=== PATIENT | male | born 1950 | race Caucasian/White ===

== ENCOUNTER → 2017-01-03 | Outpatient (CLI) | payer BC ==
[~2017-01-03] MED LIST: ASPIRIN E.C. 8181 MG PO; LIPITOR 10MG10 MG PO; LOPRESSOR 225 MG/TAB PO; NO HOME MEDICATIONS
== END ==
LOC: BHSO 15:05
DX: F41.1 Generalized anxiety disorder (principal)

== ENCOUNTER → 2017-04-04 | Outpatient (CLI) | payer BC, OTHER | LOC: BHSO 14:51 | DX: F41.1 Generalized anxiety disorder (principal) ==

== ENCOUNTER → 2017-10-03 | Outpatient (CLI) | payer BC, OTHER | LOC: BHSO 14:54 | DX: F41.1 Generalized anxiety disorder (principal) | CPT/HCPCS: G0463 ==

== ENCOUNTER → 2018-09-11 | Outpatient (CLI) | payer BC, OTHER | LOC: BHSO 13:22 | DX: F41.1 Generalized anxiety disorder (principal) | CPT/HCPCS: G0463 ==

== ENCOUNTER → 2018-10-11 | Outpatient (CLI) | payer BC, OTHER | LOC: BHSO 10:35 | DX: F33.41 Major depressive disorder, recurrent, in partial remission (principal) | CPT/HCPCS: G0463 ==

== ENCOUNTER → 2018-12-20 | Outpatient (CLI) | payer BC, OTHER | LOC: BHSO 10:38 | DX: F41.1 Generalized anxiety disorder (principal) | CPT/HCPCS: G0463 ==

== ENCOUNTER → 2019-01-06 | Outpatient (CLI) | payer BC, OTHER | LOC: BHSO 15:00 | DX: F33.0 Major depressive disorder, recurrent, mild (principal) ==

== ENCOUNTER → 2019-01-10 | Outpatient (CLI) | payer BC, OTHER ==
[2019-01-10 11:13] LABS: CALCIUM 9.4 mg/dL (8.4-10.2); CREATININE, serum 1.05 (0.66-1.25); POTASSIUM 4.1 mmol/L (3.4-5.0)
== END ==
LOC: COL.RAD 10:39
PROVIDERS: Physician Assistant
DX: R91.8 Other nonspecific abnormal finding of lung field (principal)
CPT/HCPCS: Q9967

== ENCOUNTER → 2019-06-13 | Outpatient (CLI) | payer BC, OTHER | LOC: BHSO 09:00 | DX: F41.1 Generalized anxiety disorder (principal) | CPT/HCPCS: G0463 ==